=== PATIENT | female | born 1970 | race Caucasian/White ===

== ENCOUNTER → 2017-07-28 | Outpatient (CLI) | payer BC ==
[~2017-07-28] MED LIST: ACYCLOVIR800 MG PO; ASPIRIN81 MG PO; DAYPRO600 M1 PO; HYDROCHLOROTHIA25 MG PO; TENORMIN25 MG PO; TRAMADOL HCL50 MG PO
== END | disposition home or self-care (01) ==
LOC: MAMMO 10:49
DX: Z12.31 Encounter for screening mammogram for malignant neoplasm of breast (principal)

== ENCOUNTER 2018-02-20 15:59 | Emergency (ER) | payer BC ==
[~2018-02-20] VITALS: Ht 154.9 cm; Wt 49.0 kg
[2018-02-20 15:59] VITALS: BP 119/71
[2018-02-20 16:18] LABS: BILIRUBIN 1+ (NEGATIVE); BLOOD NEGATIVE (NEGATIVE); CLARITY CLEAR (CLEAR); COLOR YELLOW (YELLOW); GLUCOSE TRACE (NEGATIVE); KETONE NEGATIVE (NEGATIVE); LEUKO ESTERASE NEGATIVE (NEGATIVE); NITRITE POSITIVE (NEGATIVE); PH 5.5 (5.0-9.0); SPECIFIC GRAVITY <= 1.005 (1.005-1.030)
[2018-02-20 16:35] LABS: BACTERIA 1+; EPITHELIAL CELLS 0-2
[2018-02-20] MEDS ORDERED: MACROBID100 M1 PO ×2 (16:35→16:39)
[2018-02-20] MEDS ORDERED: PYRIDIUM100 MG PO (16:39)
== END 2018-02-20 16:38 | disposition home or self-care (01) ==
LOC: ED 15:59
PROVIDERS: Nurse Practitioner Family
DX: N39.0 Urinary tract infection, site not specified (principal); Z79.82 Long term (current) use of aspirin; Z79.899 Other long term (current) drug therapy; Z88.1 Allergy status to other antibiotic agents

== ENCOUNTER 2019-02-11 15:55 | Emergency (ER) | payer BC ==
[~2019-02-11] VITALS: Ht 165.1 cm; Wt 52.2 kg
[~2019-02-11 15:55] MED LIST changes: +MACROBID100 M1 PO; +PYRIDIUM100 MG PO
[2019-02-11 15:56] VITALS: BP 109/78
[2019-02-11] MEDS ORDERED: IBUPROFEN600 MG PO (16:31)
[2019-02-11] MEDS ORDERED: CEPHALEXIN500 M1 PO (16:31)
== END 2019-02-11 18:29 | disposition home or self-care (01) ==
LOC: ED 15:55
DX: S61.213A Laceration without foreign body of left middle finger without damage to nail, initial encounter (principal); S60.032A Contusion of left middle finger without damage to nail, initial encounter; L08.89 Other specified local infections of the skin and subcutaneous tissue; Z79.82 Long term (current) use of aspirin; Z79.899 Other long term (current) drug therapy; Z88.1 Allergy status to other antibiotic agents; Z88.8 Allergy status to other drugs, medicaments and biological substances; W23.0XXA Caught, crushed, jammed, or pinched between moving objects, initial encounter; Y93.89 Activity, other specified; Y92.89 Other specified places as the place of occurrence of the external cause; Y99.9 Unspecified external cause status

== ENCOUNTER → 2019-04-17 | Outpatient (CLI) | payer BC ==
[~2019-04-17] MED LIST changes: +CEPHALEXIN500 M1 PO; +IBUPROFEN600 MG PO
== END | disposition home or self-care (01) ==
LOC: RAD 15:18
DX: M25.422 Effusion, left elbow (principal); S60.468A Insect bite (nonvenomous) of other finger, initial encounter; W57.XXXA Bitten or stung by nonvenomous insect and other nonvenomous arthropods, initial encounter; Y93.89 Activity, other specified; Y92.89 Other specified places as the place of occurrence of the external cause; Y99.8 Other external cause status

== ENCOUNTER → 2021-03-30 | Outpatient (CLI) | payer BC | END | disposition home or self-care (01) | LOC: MAMMO 03-11 14:30 | PROVIDERS: ATTEND Nurse Practitioner Family | DX: Z12.31 Encounter for screening mammogram for malignant neoplasm of breast (principal); N64.89 Other specified disorders of breast ==

== ENCOUNTER → 2023-08-18 | Outpatient (CLI) | payer BC | END | disposition home or self-care (01) | LOC: MAMMO 11:30 | PROVIDERS: ATTEND Student in an Organized Health Care Education/Training Program | DX: Z12.31 Encounter for screening mammogram for malignant neoplasm of breast (principal); N64.89 Other specified disorders of breast ==